=== PATIENT | male | born 1995 ===

== ENCOUNTER 2017-07-17 11:44 | Emergency (ER) | payer BC ==
[2017-07-17 13:29] VITALS: BP 129/73
--- NOTE | 2017-07-17 14:59 | UC ---
Juan Sommer Nilda, scribed for Tammy Knutson DO on 07/17/17 at 1354 . Throat Pain/Nasal Julien HPI - HPI Summary HPI Summary: This patient is a 22 year old M presenting to [facility] with a chief complaint of constant sore throat for the past 3 days. Yesterday, pt went to [facility] where he found rapid strep was negative. Pt woke up feeling worse today. The patient rates the pain 8/10 in severity. Symptoms aggravated by swallowing and coughing. Symptoms alleviated by Mucinex. Patient reports mild cough, sore throat interfering with eating and drinking, and pressure under ears. He denies eye drainage, fever, chills, myalgia, rash, fatigue, and pain with urination. Pt states his symptoms began last week after returning from a trip to [place]. - History of Current Complaint Chief Complaint: UCRespiratory Stated Complaint: THROAT PAIN Time Seen by Provider: 07/17/17 13:24 Hx Obtained From: Patient Onset/Duration: Sudden Onset, Lasting Days, Still Present Severity: Severe Pain Intensity: 8 Pain Scale Used: 0-10 Numeric Cough: Nonproductive Associated Signs & Symptoms: Positive: Other - reports mild cough, sore throat interfering with eating and drinking, and pressure under ears. He denies fever, chills, myalgia, rash, fatigue, and pain with urination. - Allergies/Home Medications Allergies/Adverse Reactions: Allergies Allergy/AdvReac Type Severity Reaction Status Date / Time No Known Allergies Allergy Verified 07/17/17 13:29 Home Medications: Home Medications Ibuprofen [Advil] 400 mg PO 07/17/17 [History] PMH/Surg Hx/FS Hx/Imm Hx Previously Healthy: Yes - Surgical History Surgical History: Yes Surgery Procedure, Year, and Place: chested expravodum repair - Family History Known Family History: Negative: Hypertension, Diabetes - Social History Occupation: Student Alcohol Use: Weekly Substance Use Type: None Smoking Status (MU): Never Smoked Tobacco Review of Systems Constitutional: Other - negative fever, chills, fatigue Skin: Other - negative rash Eyes: Other - negative eye drainage ENT: Sore Throat, Ear Ache - pressure Respiratory: Cough Genitourinary: Negative, Other - negative dysuria Musculoskeletal: Other: - negative myalgia All Other Systems Reviewed And Are Negative: Yes Physical Exam Triage Information Reviewed: Yes Appearance: Well-Appearing, No Pain Distress, Well-Nourished Vital Signs: Initial Vital Signs Temp 99.1 F 07/17/17 13:25 Pulse 81 07/17/17 13:25 Resp 18 07/17/17 13:25 BP 129/73 07/17/17 13:25 Pulse Ox 97 07/17/17 13:25 Vital Signs Reviewed: Yes Eyes: Positive: Conjunctiva Clear. Negative: Discharge ENT: Positive: Hearing grossly normal, TMs normal, Hoarse voice, Other - pt has no tonsils. Negative: Muffled voice Neck exam: Normal Neck: Positive: Supple Respiratory: Positive: Lungs clear, Normal breath sounds, No respiratory distress, No accessory muscle use Cardiovascular: Positive: RRR, No Murmur Abdomen Description: Positive: Nontender, Soft. Negative: Distended, Guarding Bowel Sounds: Positive: Present Musculoskeletal Exam: Normal Neurological: Positive: Alert, Muscle Tone Normal Psychological Exam: Normal Psychological: Positive: Age Appropriate Behavior Skin Exam: Normal Skin: Positive: Other - Normal color, warm, dry Throat Pain/Nasal Course/Dx - Course Assessment/Plan: This patient is a 22 year old M presenting to [facility] with a chief complaint of constant sore throat for the past 3 days. Yesterday, pt went to [facility] where he found rapid strep was negative. Pt woke up feeling worse today. The patient rates the pain 8/10 in severity. Symptoms aggravated by swallowing and coughing. Symptoms alleviated by Mucinex. Patient reports mild cough, sore throat interfering with eating and drinking, and pressure under ears. He denies eye drainage, fever, chills, myalgia, rash, fatigue, and pain with urination. Pt states his symptoms began last week after returning from a trip to [place]. Pending labs. Rapid strep negative. Patient will be discharged with a follow up from PCP. The patient is agreeable with this plan. Medications reviewed. Allergies reviewed. Pt is Dx with sore throat. - Differential Dx/Diagnosis Provider Diagnoses: sore throat Discharge - Discharge Plan Condition: Stable Disposition: HOME Patient Education Materials: Pharyngitis (ED) Referrals: [facility] [Outside] (FOLLOW UP IN 3-5 DAYS IF NOT IMPROVING) No Primary Care Phys,NOPCP [Primary Care Provider] - Additional Instructions: CORTICOSTEROID MEDICATION: You have been given a medicine of the cortisone class. This medication is used to control inflammation or allergy. It is usually only given for a short period of time, until the acute process subsides. There are usually no side effects from short-term use of cortisone-like medications. Some persons feel an increased sense of well-being and are not sleepy at bedtime. Long-term use of cortisone medications is best avoided, unless required for a severe condition. If your condition does not remit, or relapses after the course of corticosteroid medication, you should consult your physician. Contact the physician if you develop lightheadedness, black or tarry stools , swelling of the legs, or significant rapid change in weight. DISCUSSED, TRY MAGIC MOUTHWASH TO CONTROL PAIN PRIOR TO EATING. WE ARE DOING SOME LAB WORK. YOU WILL BE CONTACTED WITH ABNORMAL RESULTS. The documentation as recorded by the Juan sanchez Nilda accurately reflects the service I personally performed and the decisions made by me, Tammy Knutson DO.
== END 2017-07-17 14:55 | disposition home or self-care (01) ==
LOC: UCEAST 11:44
DX: J02.9 Acute pharyngitis, unspecified (principal)
CPT/HCPCS: 36415; 86308; 86664; 86665; 87651; 99202; G0463